=== PATIENT | male | born 2005 | race Caucasian/White ===

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

== ENCOUNTER 2024-01-06 04:02 | Emergency (ER) | payer SELFPAY ==
[~2024-01-06] VITALS: Ht 175.3 cm; Wt 65.8 kg
[2024-01-06] MEDS ORDERED: methylPREDNISolone SOD SUCC 125 MG/2 ML VIAL ONE (04:23)
[2024-01-06] MEDS ORDERED: diphenhydrAMINE 50 MG/1 ML VIAL ONE (04:23)
[2024-01-06] MEDS ORDERED: FAMOTIDINE. 20 MG/2 ML VIAL IV ONE (04:24)
[2024-01-06 04:26] LABS: BASOPHILS % (AUTO) 0.5 % (0.0-2.0); EOSINOPHILS # (AUTO) 0.1 K/uL (0.0-0.7); EOSINOPHILS % (AUTO) 0.7 % (0.0-7.0); HEMOGLOBIN 15.3 g/dL (12.5-16.3); LYMPHOCYTES # (AUTO) 3.1 K/uL (0.8-4.8); LYMPHOCYTES % (AUTO) 36.6 % (20.5-74.5); MEAN CORPUSCULAR HEMOGLOBIN 29.1 uug (23.8-33.4); MEAN CORPUSCULAR HGB CONC 35 g/dL (32.5-36.3); MEAN CORPUSCULAR VOLUME 83.5 fL (73.0-96.2); MONOCYTES # (AUTO) 0.5 K/uL (0.1-1.30); MONOCYTES % (AUTO) 5.7 % (0-11); NEUTROPHILS # (AUTO) 4.8 K/uL (1.8-8.9); NEUTROPHILS % (AUTO) 56.5 % (31.5-64.5); PLATELET COUNT (AUTO) 237 K/uL (152-348); RED BLOOD CELL COUNT(AUTO) 5.27 MIL/uL (4.06-5.63); RED CELL DISTRIBUTION WIDTH 13.4 % (12.1-16.2); WHITE BLOOD COUNT (AUTO) 8.5 K/uL (3.6-10.2)
[2024-01-06] MEDS: diphenhydrAMINE 50 MG/1 ML VIAL IV ONE (04:30)
[2024-01-06] MEDS: FAMOTIDINE. 20 MG/2 ML VIAL IV ONE (04:32)
[2024-01-06] MEDS: methylPREDNISolone SOD SUCC 125 MG/2 ML VIAL IV ONE (04:33)
[2024-01-06 04:41] LABS: ALBUMIN 4.8 g/dL (3.4-5.0); BILIRUBIN,TOTAL 0.3 mg/dL (0.2-1.0); CALCIUM 8.8 mg/dL (8.5-10.1); CREATININE 0.9 mg/dL (0.6-1.3); POTASSIUM 3.7 mmol/L (3.5-5.1); TOTAL PROTEIN, SERUM 8.3 g/dL (6.4-8.2)
[2024-01-06] MEDS ORDERED: PRED20TA PO (05:59)
[2024-01-06] MEDS ORDERED: DIPH25TA62 PO (05:59)
[2024-01-06 06:06] VITALS: BP 125/60; TEMP 98.6; O2SAT 99
== END 2024-01-06 06:07 | disposition home or self-care (01) ==
LOC: ER 04:26
DX: L50.9 Urticaria, unspecified (principal); Z79.899 Other long term (current) drug therapy
CPT/HCPCS: 99284; 96374; 96375; 80053; 85025; 36415; J1200; J3490; J2919; A4606; A4663